=== PATIENT | male | born 1975 | race Two or more races ===

== ENCOUNTER → 2016-12-13 | Outpatient (REF) | payer OTHER ==
[2016-12-13 12:09] LABS: ALBUMIN 3.9 GM/DL (3.2-5.2); ALBUMIN/GLOBULIN RATIO 1.18 (1.00-1.93); ALKALINE PHOSPHATASE 75 U/L (45-117); ALT/SGPT 28 U/L (12-78); ANION GAP 9 MEQ/L (8-16); AST/SGOT 16 U/L (15-37); BILIRUBIN,TOTAL 0.3 MG/DL (0.2-1.0); BLOOD UREA NITROGEN 8 MG/DL (7-18); CALCIUM LEVEL 9.4 MG/DL (8.5-10.1); CARBON DIOXIDE LEVEL 30 MEQ/L (21-32); CHLORIDE LEVEL 104 MEQ/L (98-107); CHOLESTEROL LEVEL 242 MG/DL (<200); CREATININE FOR GFR 0.87 MG/DL (0.70-1.30); GLOMERULAR FILTRATION RATE > 60.0 (>60); GLUCOSE, FASTING 95 MG/DL (70-105); POTASSIUM SERUM 4.1 MEQ/L (3.5-5.1); SODIUM LEVEL 143 MEQ/L (136-145); TOTAL PROTEIN 7.2 GM/DL (6.4-8.2); TRIGLYCERIDES LEVEL 109 MG/DL (<150)
== END ==
LOC: M SFHCCLAY 09:20
PROVIDERS: ATTEND Family Medicine
DX: Z13.220 Encounter for screening for lipoid disorders (principal)

== ENCOUNTER → 2016-12-13 | Outpatient (CLI) | payer OTHER ==
--- NOTE | 2016-12-13 10:16 | REP ---
RIGHT KNEE, FIVE VIEWS: HISTORY: Pain. There is no acute fracture or dislocation. The joint spaces are normal in appearance. IMPRESSION: There is no acute fracture or dislocation.
== END ==
LOC: M CLY 09:31
PROVIDERS: ATTEND Family Medicine
DX: M25.561 Pain in right knee (principal)

== ENCOUNTER → 2017-11-06 | Outpatient (CLI) | payer OTHER | LOC: M RAD 15:04 | DX: M48.061 Spinal stenosis, lumbar region without neurogenic claudication (principal); M51.26 Other intervertebral disc displacement, lumbar region | CPT/HCPCS: 72148 ==

== ENCOUNTER → 2018-12-04 | Outpatient (REF) | payer OTHER ==
[2018-12-04 12:10] LABS: ALBUMIN 3.6 GM/DL (3.2-5.2); ALT/SGPT 19 U/L (12-78); BILIRUBIN,TOTAL 0.3 MG/DL (0.2-1.0); BLOOD UREA NITROGEN 8 MG/DL (7-18); CALCIUM LEVEL 8.7 MG/DL (8.5-10.1); CARBON DIOXIDE LEVEL 28 MEQ/L (21-32); CHLORIDE LEVEL 105 MEQ/L (98-107); CHOLESTEROL LEVEL 194 MG/DL (<200); CHOLESTEROL RISK RATIO 3.344 (<5); CREATININE FOR GFR 0.84 MG/DL (0.70-1.30); GLOMERULAR FILTRATION RATE > 60.0 (>60); GLUCOSE, FASTING 98 MG/DL (70-100); HDL CHOLESTEROL 58 MG/DL (>40); LDL CHOLESTEROL 126 MG/DL (<100); NON-HDL-C 136 MG/DL; POTASSIUM SERUM 4.6 MEQ/L (3.5-5.1); SODIUM LEVEL 142 MEQ/L (136-145); TOTAL PROTEIN 6.6 GM/DL (6.4-8.2); TRIGLYCERIDES LEVEL 52 MG/DL (<150)
== END ==
LOC: M SFHCCLAY 07:26
PROVIDERS: ATTEND Family Medicine
DX: E78.2 Mixed hyperlipidemia (principal)

== ENCOUNTER → 2019-06-04 | Outpatient (CLI) | payer OTHER ==
--- NOTE | 2019-06-04 12:07 | REP ---
MRI of the lumbar spine without contrast: Indication: Lumbar stenosis. Comparison: MRI lumbar spine of 11/06/2017. Technique: MRI lumbar spine was performed without contrast utilizing sagittal T1, T2 and STIR and axial T2 and T1-weighted images. FINDINGS: Bone marrow is diffusely T1 hypointense in signal but unchanged from prior studies. There is normal alignment of the lumbar spine. Vertebral body heights are maintained. There is loss of disc height at L1-L2. There is disc desiccation and L1-L2 and L4-L5. There is endplate irregularity with edematous and fatty marrow changes at L1-L2. There is edematous marrow changes at L2-L3. The visualized spinal cord is unremarkable. The conus medullaris terminates at L1-L2. The paraspinal soft tissues are within normal limits. Level specific observations: T11-T12 (sagittal images only): There is diffuse disc bulge. T12-L1: No significant spinal canal stenosis or neural foraminal narrowing. L1-L2: Diffuse disc bulge with superimposed central disc protrusion, similar to prior. There is effacement of the ventral thecal sac. Mild narrowing of the left neural foramen. L2- L3: No significant spinal canal stenosis or neural foraminal narrowing. L3-L4: No significant spinal canal stenosis or neural foraminal narrowing. L4-L5: Central disc protrusion, similar to prior. Annular fissure. L5-S1: No significant spinal canal stenosis or neural foraminal narrowing. IMPRESSION: 1. When compared to the 11/06/2017 MRI examination, there is new annular fissure at L4-L5. 2. Disc protrusion at L1-L2 and L4-L5 is not significantly changed. 3. Mild narrowing of the left L1-L2 neural foramen. 4. Similar appearance of decreased T1 signal intensity throughout the marrow which is nonspecific. However, correlation can be made for history of anemia or chronic marrow process. Electronically Signed by Guille Perez MD 06/04/2019 01:25 P
== END ==
LOC: M PLARAD 09:01
PROVIDERS: ATTEND Family Medicine
DX: M48.061 Spinal stenosis, lumbar region without neurogenic claudication (principal)

== ENCOUNTER → 2019-07-01 | Outpatient (CLI) | payer OTHER ==
--- NOTE | 2019-07-02 14:59 | REP ---
CHEST X-RAY: Three views. HISTORY: Pneumonia. Comparison films have been retrieved from an outside facility dated June 13, 2019. FINDINGS: There are air bronchograms in a pleural-based rounded 5 cm opacity in the right lower lateral lung field. This is superimposed on the heart on the lateral radiograph. There is improvement since the June 13, 2019 study in the frontal view. There is tenting of the right lateral hemidiaphragm. The more lateral portion of the diaphragm is more visible now. The overall opacity is a little smaller. There is still considerable consolidation. No new infiltrate is seen. IMPRESSION: Findings most likely represent gradually improving pneumonia. The residual opacity however is rounded and pleural-based and I recommend followup x-ray in 3 weeks to document clearing. If this lesion fails to clear. CT scanning should be considered. Electronically Signed by Jon Burden MD 07/02/2019 03:02 P
== END ==
LOC: M CLY 11:39
PROVIDERS: ATTEND Family Medicine
DX: J18.9 Pneumonia, unspecified organism (principal)

== ENCOUNTER → 2019-07-22 | Outpatient (CLI) | payer OTHER ==
--- NOTE | 2019-07-22 14:45 | REP ---
REASON: Followup pneumonia. COMPARISON: 07/01/2019. The patchy opacities seen previously in the right middle lobe lateral segment is smaller and less dense, however, a significant residual persists. There are no new abnormal opacities. The heart is not enlarged. The osseous structures are stable and intact. IMPRESSION: Persistent lung opacity as described above. Contrast enhanced CT examination of the chest is recommended. Electronically Signed by Skip Castro DO 07/22/2019 04:43 P
== END ==
LOC: M CLY 14:02
PROVIDERS: ATTEND Family Medicine
DX: J18.1 Lobar pneumonia, unspecified organism (principal)

== ENCOUNTER → 2019-07-29 | Outpatient (CLI) | payer OTHER ==
[~2019-07-29] MED LIST: ISOVUE-370 76% 100ML VIAL (Q9967) As Ordered ONE
--- NOTE | 2019-07-29 17:07 | REP ---
CT chest with IV contrast: History: Abnormal chest x-ray. Pneumonia. Comparison chest x-ray July 22, 2019 and July 01, 2019. There is a comparison chest x-ray also reviewed from June 13, 2019. CT contrast dose: 75 ml of intravenous Isovue [address] findings: There is segmental atelectasis and consolidation in the lateral segment right middle lobe. There are is some bronchiectasis associated with this. There is a granulomatous calcification in the aerated medial segment of the right middle lobe. No mass lesion or other pulmonary nodule is appreciated. There is no evidence of hilar or mediastinal lymphadenopathy. No pleural or pericardial effusion is appreciated. No other pulmonary parenchymal infiltrate is seen. There is no evidence of endobronchial disease. No adrenal lesion is observed. Visualized upper abdominal structures are unremarkable. No bony destructive lesion is seen. Impression: There is consolidation and atelectasis in the lateral segment right middle lobe with associated postinflammatory bronchiectasis. Findings most consistent with post inflammatory changes. There is a calcified granuloma also noted in the right middle lobe. Otherwise no acute disease. Repeat chest x-ray and 4 to 6 months suggested. Electronically Signed by Jon Burden MD 07/30/2019 08:34 A
== END ==
LOC: M RAD 15:21
PROVIDERS: ATTEND Family Medicine
DX: R93.89 Abnormal findings on diagnostic imaging of other specified body structures (principal); J98.11 Atelectasis; J47.9 Bronchiectasis, uncomplicated; J84.10 Pulmonary fibrosis, unspecified
CPT/HCPCS: 71260; Q9967

== ENCOUNTER → 2019-09-02 | Outpatient (CLI) | payer OTHER ==
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
== END ==
LOC: M PAIN 15:00
PROVIDERS: ATTEND Anesthesiology
DX: M79.18 Myalgia, other site (principal); M54.42 Lumbago with sciatica, left side; M54.41 Lumbago with sciatica, right side; G89.29 Other chronic pain; M47.816 Spondylosis without myelopathy or radiculopathy, lumbar region

== ENCOUNTER → 2019-10-26 | Outpatient (CLI) | payer OTHER ==
[~2019-10-26] MED LIST changes: +BUPIVACAINE HCL 0.25% 10 ML VIAL As Ordered ONE; +BUPIVACAINE HCL 0.25% 30 ML VIAL As Ordered ONE; -ISOVUE-370 76% 100ML VIAL (Q9967) As Ordered ONE; +TRIAMCINOLONE ACETONIDE SUSP 40 MG/ML VIAL (J3301) As Ordered ONE
--- NOTE | 2019-11-03 04:12 | ECWPNPC ---
PATIENT NAME: NICOLÁS MCRAE : 1975 GENDER: MALE VISIT DATE: 10/26/2019 DISCHARGE DATE: 10/26/19 1544 VISIT LOCKED DATE TIME: PHYSICIAN: EUFEMIA HERNANDEZ MD RESOURCE: EUFEMIA HERNANDEZ MD REASON FOR APPOINTMENT 1. TPI JASON LOW BACK HISTORY OF PRESENT ILLNESS HISTORY OF PRESENT ILLNESS: PAIN THE PATIENT DESCRIBES THE PAIN... FALL RISK SCREENING: SCREENING :NO FALLS REPORTED IN THE LAST YEAR CURRENT MEDICATIONS TAKING CHANTIX 1 MG TABLET 1 TABLET ORALLY TWICE A DAY, NOTES: 10/26/19 0800 TAKING OXYCODONE HCL 5 MG TABLET 2 TABLET NEEDED ORALLY EVERY 6 HOURS MDD#8, NOTES: 10/26/19 1230 NOT-TAKING MULTIVITAMIN ADULTS - TABLET 1 TAB ORALLY DAILY MEDICATION LIST REVIEWED AND RECONCILED WITH THE PATIENT PAST MEDICAL HISTORY LOW BACK PAIN-LUMBAR DEGENERATIVE DISC DISEASE PNEUMONIA ONCE MIXED HYPERLIPIDEMIA SPINAL STENOSIS - LUMBAR ALLERGIES N.K.D.A. SURGICAL HISTORY DENIES PAST SURGICAL HISTORY FAMILY HISTORY FATHER: 73 YRS, CHF, DIAGNOSED WITH DIABETES, HYPERTENSION, UNSPECIFIED HEART DISEASE IN 2 MOTHER: 66 YRS, LUNG CANCER SIBLINGS: ALIVE SON(S): ALIVE DAUGHTER(S): ALIVE 2 BROTHER(S) , 2 SISTER(S) . 2 SON(S) , 2 DAUGHTER(S) - HEALTHY. 1 SISTER-THYROID ISSUES1 BROTHER-HTN. SOCIAL HISTORY GENERAL: TOBACCO USE ARE YOU A:FORMER SMOKER HOW LONG HAS IT BEEN SINCE YOU LAST SMOKED?3-6 MONTHS HIV / HEP-C SCREENING HIV TEST OFFERED TO PATIENT:YES DATE OFFERED:12/04/2018 TEST ACCEPTED:NO HEP-C TEST OFFERED TO PATIENT:NO REASON:PATIENT DECLINED BROCHURE PROVIDED TO PATIENTNO OTHERS AT HOME: SPOUSE, CHILDREN. HOUSING: RENTS HOUSE. EDUCATION LEVEL OF EDUCATION: GED DIET: REGULAR. LANGUAGE LANGUAGES SPOKEN:ZAMBIAN DOMESTIC VIOLENCE DO YOU FEEL SAFE IN YOUR ENVIRONMENT?YES RECREATIONAL DRUG USE DRUG USE?NO EXERCISE: ACTIVE. LEARNING BARRIERS / SPECIAL NEEDS CHANGE FROM LAST VISIT?NO BARRIERS TO LEARNING?NO HEARING IMPAIRED?NO VISION IMPAIRED?NO COGNITIVELY IMPAIRED?NO READINESS TO LEARN?YES LEARNING PREFERENCES?NO LEARNING CAPABILITIES PRESENT?YES EMOTIONAL BARRIERS?NO SPECIAL DEVICES?NO TALENT ENGINEER NEEDED?NO PAIN CLINIC PFS, CLERGY, PUBLIC HEALTH REFERRALS HAS THE PATIENT BEEN EDUCATED REGARDING HIS/HER PLAN OF CARE?YES HAS THE PATIENT BEEN EDUCATED REGARDING PAIN, THE RISK FOR PAIN, THE IMPORTANCE OF EFFECTIVE PAIN MANAGEMENT, AND THE PAIN ASSESSMENT PROCESS?YES LATEX QUESTIONNAIRE LATEX ALLERGY : HAVE YOU EVER DEVELOPED ANY TYPE OF REACTION AFTER HANDLING LATEX PRODUCTS SUCH RUBBER GLOVES, CONDOMS, DIAPHRAGMS, BALLOONS, SOCKS, OR UNDERWEAR?NO LATEX ALLERGY : HAVE YOU EVER DEVELOPED ANY TYPE OF REACTION DURING OR AFTER DENTAL APPOINTMENT, VAGINAL/RECTAL EXAMINATION, SURGICAL PROCEDURE, OR ANY OTHER EXPOSURE?NO LATEX RISK : HAVE YOU EVER HAD ANY DIFFICULTY BREATHING OR HIVES AFTER EATING OR HANDLING ANY FRUITS, OR VEGETABLES; SUCH KIWI, BANANAS, STONE FRUITS, OR CHESTNUTSNO LATEX RISK : DO YOU HAVE A PREVIOUS PERSONAL HISTORY OF MORE THAN NINE SURGERIES, SPINA BIFIDA, OR REPEATED CATHERIZATIONS? NO LATEX RISK : ARE YOU FREQUENTLY EXPOSED TO LATEX PRODUCTS IN YOUR OCCUPATION?NO DATE ASKED : 09/02/2019 CAFFEINE CAFFEINE USE?YES HOW OFTEN AND HOW MUCH? 2 SODAS DAILY ADVANCE DIRECTIVE ADVANCE DIRECTIVE DISCUSSED WITH PATIENT:YES 10/21/2019 PT DOES NOT HAVE ANY ADVANCED DIRECTIVES AND HE DECLINES INFORMATION ON HCP AT THIS TIME. [facility] [id number] NONE MARITAL STATUS: . ALCOHOL SCREENING DID YOU HAVE A DRINK CONTAINING ALCOHOL IN THE PAST YEAR?NO POINTS0 INTERPRETATIONNEGATIVE OCCUPATION: CONSTRUCTION. SEXUAL HX HAD SEX IN THE LAST 12 MONTHS (VAGINAL, ORAL, OR ANAL)?YES WITHWOMEN ONLY PREVENTION STRATEGIES DISCUSSED:OTHER USE PROTECTION?NO HAVE YOU EVER HAD AN STD?NO PRE-SCREENING COMPLETED 10/21/2019 1518 JS. HOSPITALIZATION/MAJOR DIAGNOSTIC PROCEDURE HEAT STROKE 2002 REVIEW OF SYSTEMS REVIEWED BY: PROVIDER: . CONSTITUTIONAL: ANY CHANGE IN YOUR MEDICAL CONDITION? NO . CHILLS NO . FEVER NO . INFECTION: DO YOU HAVE NEW INFECTIONS? NO . DO YOU HAVE HISTORY OF MRSA? NO . MUSCULOSKELETAL: ANY NEW PATTERNS OF PAIN OR NUMBNESS? NO . GASTROENTEROLOGY: ANY NEW CHANGE IN BOWEL CONTROL? NO . GENITOURINARY: ANY NEW CHANGE IN BLADDER CONTROL? NO . IS THERE A CHANCE YOU COULD BE ? NO . HEMATOLOGY/LYMPH: DO YOU TAKE ANY BLOOD THINNERS? (FOR EXAMPLE- COUMADIN, PLAVIX, AGGRENOX, PLATEL, PRADAXA, OR XARELTO) NO . WHEN WAS YOUR LAST DOSE? DATE: TIME: . NEUROLOGY: HAVE YOU FALLEN IN THE PAST 12 MONTHS? NO . ANY NEW EXTREMITY NUMBNESS OR WEAKNESS? NO . CARDIOLOGY: DO YOU HAVE A PACEMAKER OR DEFIBRILLATOR? NO . RESPIRATORY: HAVE YOU BEEN SICK IN THE PAST WEEK? NO . FEVER NO . FLU LIKE SYMPTOMS? NO . COUGH NO . INTEGUMENTARY: DO YOU HAVE ANY RASHES OR OPEN SORES? NO . ALLERGIC/IMMUNO: ARE YOU ALLERGIC TO IV DYE? NO . ANY NEW ALLERGIES? NO . PSYCHIATRIC: DO YOU HAVE THOUGHTS OF HURTING YOURSELF OR SOMEONE ELSE? NO . ARE YOU ABUSED, NEGLECTED, OR IN AN UNSAFE ENVIRONMENT? NO . ENDOCRINOLOGY: ARE YOU DIABETIC? NO . OTHER: DO YOU NEED ANY PRESCRIPTIONS? NO . IF YES, PLEASE LIST: ____ . ANY NEW PROBLEMS WITH YOUR MEDICATIONS? NO . WHEN DID YOU LAST EAT? 10/25/19 2130 . WHEN DID YOU LAST DRINK? 04/25/20 1230 . WHAT DID YOU LAST DRINK? WATER . NAME OF PERSON DRIVING YOU HOME? - JANUARY CLEMENTINA . DO YOU HAVE ANY OTHER QUESTIONS OR CONCERNS NO . VITAL SIGNS WT 164.4 LBS, HT 6', BMI 22.29 INDEX, BP 125/85 MM HG, HR 60 /MIN, RR 18 /MIN, TEMP 97.9 F, OXYGEN SAT % 99%, SAFE IN ENV? (Y/N) YES, NA INITIALS SC 14:01, REVIEWED BY: TY. ASSESSMENTS MYALGIA, OTHER SITE - M79.18 (PRIMARY) PROCEDURES PN TRIGGER POINT INJECTION WITH STEROIDS PRE PROCEDURE DIAGNOSIS 1. MYALGIA 2. PAIN AT RIGHT LOW BACK AREA AND LEFT LOW BACK AREA POST PROCEDURE DIAGNOSIS 1. MYALGIA 2. PAIN AT RIGHT LOW BACK AREA AND LEFT LOW BACK AREA PROCEDURE TRIGGER POINT INJECTION AT RIGHT LOW BACK AREA AND LEFT LOW BACK AREA SURGEON DR. EUFEMIA HERNANDEZ INSTRUCTOR DANCING NONE ANESTHESIA LOCAL PRE PROCEDURE NOTE THE PATIENT HAS A HISTORY OF CHRONIC PAIN AT THE RIGHT LOW BACK AREA AND LEFT LOW BACK AREA. I EVALUATED THE PATIENT AND REVIEWED THE CHART. THERE IS EVIDENCE OF BANDS OF TISSUE WITH RESTRICTION OF MOVEMENT AND PRESENCE OF TRIGGER POINT AT THE AFFECTED AREAS. I WENT OVER THE RISKS, ALTERNATIVES, AND BENEFITS ASSOCIATED WITH THIS PROCEDURE. THE PATIENT WOULD LIKE TO PROCEED AND GIVES CONSENT TO PERFORMED THE PROCEDURE. THE PATIENT DENIES UNEXPLAINABLE WEIGHT LOSS, FEVER, CHILLS, OR NEW CHANGES IN URINARY OR BOWEL CONTROL DESCRIPTION OF PROCEDURE THE PATIENT WAS BROUGHT TO THE PROCEDURE ROOM AND PLACED IN THE SITTING POSITION. THE AREA WAS CLEANED WITH ALCOHOL. THE PROCEDURE WAS DONE USING ASEPTIC STERILE TECHNIQUE. I CHECKED LATERALITY AND THE LEVEL WHERE THE PROCEDURE WAS GOING TO BE PERFORMED WITH THE PATIENT AND THE SUPPORTING STAFF AT THE MOMENT OF THE TIME OUT IN THE PROCEDURE ROOM. USING A 25-GAUGE NEEDLE, TRIGGER POINTS WERE INJECTED AT THE RIGHT LOW BACK AREA AND LEFT LOW BACK AREA WITH A TOTAL OF 40 ML OF BUPIVACAINE 0.25% AND KENALOG 40 MG. THERE WAS NO EVIDENCE OF BLOOD, PARESTHESIA OR CEREBROSPINAL FLUID DURING THE PROCEDURE. THE PATIENT WAS SENT TO THE RECOVERY ROOM. THE PATIENT WAS MOVING THE EXTREMITIES AND DOING WELL. THERE WAS NO COMPLICATION DURING THE PROCEDURE POST PROCEDURE NOTE THE PATIENT WILL BE SEEN IN A FOLLOW UP IN THE NEXT FEW WEEKS. I AM LOOKING FOR LONG-LASTING PAIN RELIEF WITH THIS INTERVENTION. INSTRUCTIONS WERE GIVEN, QUESTIONS WERE ANSWERED, AND THE PATIENT EXPRESSED UNDERSTANDING AND AGREES WITH THE PLAN. I, TANVIR BROOKS, DOCUMENTED THE ABOVE INFORMATION ACTING A SCRIBE FOR DR. HERNANDEZ. I HAVE REVIEWED THE ABOVE DOCUMENT, WRITTEN BY TANVIR BARRAZA, AND I VERIFY THAT IT IS ACCURATE PROCEDURE CODES 20228 INJECT TRIGGER POINT, 1 OR 2 DISPOSITION & COMMUNICATION FOLLOW UP 3 WEEKS ELECTRONICALLY SIGNED BY EUFEMIA HERNANDEZ MD, MD ON 11/02/2019 AT 10:21 AM EST DISCLAIMER : THIS IS A VISIT SUMMARY EXTRACTED FROM THE [employer] CHART. IT IS NOT A COPY OF THE [employer] PROGRESS NOTE. MATT
== END ==
LOC: M PAIN 14:00
PROVIDERS: ATTEND Anesthesiology
DX: M79.18 Myalgia, other site (principal); E78.2 Mixed hyperlipidemia; Z87.891 Personal history of nicotine dependence; Z79.899 Other long term (current) drug therapy
CPT/HCPCS: 20552; J3301

== ENCOUNTER → 2020-08-16 | Outpatient (CLI) | payer OTHER ==
--- NOTE | 2020-08-16 15:07 | REP ---
INDICATION: R93.89, ABNORMAL CHEST XRAY. COMPARISON: Comparison chest x-ray July 22, 2019. comparison chest CT study July 29, 2019. TECHNIQUE: Three views.. FINDINGS: The lungs are hyperinflated. There is some linear markings in the right base just behind the heart on the lateral film. The right middle lobe infiltrate seen on July 22, 2019 is improved and some linear fibrosis is seen in its wake. No new infiltrate is seen. Pleural angles are sharp. Heart is not enlarged. No significant bony abnormality. IMPRESSION: Right middle lobe linear fibrosis where prior study showed infiltrate. Hyperinflation. Otherwise, no acute disease.. <Electronically signed by Govind Burden > 08/16/20 1546
== END | disposition home or self-care (01) ==
LOC: M CLY 09:14
PROVIDERS: ATTEND Family Medicine
DX: R93.89 Abnormal findings on diagnostic imaging of other specified body structures (principal)

== ENCOUNTER → 2021-07-27 | Outpatient (REF) | payer OTHER ==
[2021-07-27 17:14] LABS: ALBUMIN 3.4 GM/DL (3.2-5.2); ALT/SGPT 14 U/L (12-78); BILIRUBIN,TOTAL 0.4 MG/DL (0.2-1.0); BLOOD UREA NITROGEN 20 MG/DL (7-18); CALCIUM LEVEL 9.1 MG/DL (8.5-10.1); CARBON DIOXIDE LEVEL 35 MEQ/L (21-32); CHLORIDE LEVEL 98 MEQ/L (98-107); CHOLESTEROL LEVEL 153 MG/DL (<200); CHOLESTEROL RISK RATIO 2.428 (<5); CREATININE FOR GFR 0.96 MG/DL (0.70-1.30); GLOMERULAR FILTRATION RATE > 60.0 (>60); GLUCOSE, FASTING 111 MG/DL (70-100); HDL CHOLESTEROL 63 MG/DL (>40); LDL CHOLESTEROL 77 MG/DL (<100); NON-HDL-C 90 MG/DL; POTASSIUM SERUM 3.8 MEQ/L (3.5-5.1); SODIUM LEVEL 137 MEQ/L (136-145); TOTAL PROTEIN 6.4 GM/DL (6.4-8.2); TRIGLYCERIDES LEVEL 66 MG/DL (<150)
== END ==
LOC: M SFHCCLAY 11:13
PROVIDERS: ATTEND Family Medicine
DX: E78.2 Mixed hyperlipidemia (principal)

== ENCOUNTER 2021-08-14 21:12 | Emergency (ER) | payer OTHER ==
[~2021-08-14] VITALS: Ht 182.9 cm; Wt 68.2 kg
--- OUTSIDE RECORDS SUMMARY | 2021-08-14 21:18 | CCD ---
Author Author [facility] Organization [facility] Address Unknown Phone Unavailable Care Team Providers Care Carpet Sewer Name Role Phone Jasson Busby Unavailable PROBLEMS Type Condition ICD9-CM Code [id number] Code Onset Dates Condition S tatus W/U Status Risk SNOMED Code Notes Problem Lumbar stenosis without neurogenic claudication M4 8.061 Active confirmed 74386987 Problem Lumbar degenerative disc disease M51.36 Active conf irmed 09892879 Problem Lumbago with sciatica, left side M54.42 Active confirmed 324566633 Problem Abnormal chest x-ray R93.89 Active confirmed 517801068 Problem Mixed hyperlipidemia E78.2 Active confirmed 095432462 Problem Primary insomnia F51.01 Active confirmed 397 2004 Problem Tobacco use disorder F17.200 Active confirmed 689144509 Problem Lumbago with sciatica, right side M54.41 Active confirmed 879950262529998 Problem Spondylosis without myelopathy or radiculopathy, lumbar region M47.816 Active confirmed 838422817 Problem Other chronic pain G89.29 Active confirmed 8 3818665 Problem Myalgia, other site M79.18 Active confirmed 78619109 ALLERGIES Allergen (clinical drug ingredient) Drug/Non Drug Allergy do cumented on EMR Reaction Allergy Type Onset Date Status amitriptyline Amitriptyline HCl([facility] Code:[address]-77) altere d sensations Drug Allergy Active ENCOUNTERS from 1973 to 2021-08-07 Encounter Location Date Provider Diagnosis [address] [phone] [place] [address] Jul, Jasson Busby IMMUNIZATIONS Vaccine Route Administration Date Status Influenza 18 yrs & older Flublok IM Intramuscular Sep 08, 2020 Administered TDAP VFC 0.5mL Boostrix IM Intramuscular Jun 27, 2017 Adminis tered Influenza 6mo & up Fluzone IM Intramuscular Sep 09, 2017 Admi nistered SOCIAL HISTORY Tobacco Use: Social History Observation Description Date Details (start date - stop date) Current Smoker Sex Assigned At : Social History Observation Description Sex Assigned At Unknown Education: Question Answer Notes Level of Education: GED Audit Question Answer Notes Total Score: 0 Interpretation: Alcohol Education Language: Question Answer Notes Languages spoken: Cymro Restoration: Question Answer Notes Restoration 33 None Sexual Hx: Question Answer Notes Had sex in the last 12 months (vaginal, oral, or anal)? Yes Have you ever had an STD? No Prevention Strategies discussed: Other with Women only Use protection? No Alcohol Screening: Question Answer Notes Did you have a drink containing alcohol in the past year? No Points 0 Interpretation Negative Tobacco Use: Question Answer Notes Are you a: current smoker Additional Findings: Tobacco User Moderate cigarette smoker (10-19 cigs/day) Smoking Cessation Information Given 07/27/2021 Additional Findings: Tobacco Non-User Ex-heavy cigarette smo ker (20-30/day) Are you interested in quitting? Not ready to quit Counseled the patient on smoking effects, education provided 07/27/2021 REASON FOR REFERRAL No Information VITAL SIGNS No information MEDICATIONS Medication SIG (Take, Route, Frequency, Duration) Notes Start Da te End Date Status Lunesta 3 MG 1 tablet immediately before bedtime Oral ly Once a day for 30 Days Jul, Active Zaleplon 10 MG 1 capsule at bedtime as needed Orally Once a day for 30 Days Jul, Active Gabapentin 100 MG 1 capsule Orally three times daily for 14 day( s) Jul, Active traZODone HCl 50 MG 1 tablet at bedtime as neede d Orally Once a day for 30 day(s) Jul, Active Naproxen 500 MG 1 tablet with food or milk as needed Orally every 12 hrs Active PROCEDURES No Information RESULTS No Results REASON FOR VISIT PA Lunesta 3mg tablets MEDICAL (GENERAL) HISTORY Type Description Date Medical History Low back pain-Lumbar Degenerative Disc D isease Medical History Mixed Hyperlipidemia Medical History Spinal Stenosis - Lumbar Surgical History No Surgical history information Hospitalization History Heat Stroke 2003 Goals Section No Information Health Concerns No Information MEDICAL EQUIPMENT No Information MENTAL STATUS No Information FUNCTIONAL STATUS No Information ASSESSMENTS No Information PLAN OF TREATMENT Medication Medication Name Sig Start Date Stop Date Lunesta 3 MG 1 tablet immediately before bedtime Oral ly Once a day for 30 Days Jul, traZODone HCl 50 MG 1 tablet at bedtime as neede d Orally Once a day for 30 day(s) Jul, Zaleplon 10 MG 1 capsule at bedtime as needed Orally On ce a day for 30 Days Jul, Gabapentin 100 MG 1 capsule Orally three times daily for 14 day( s) Jul, Insurance Providers Payer Name Payer Address Payer Phone Insured Name Patient Relati onship to Insured Coverage Start Date Coverage End Date [facility] COMM[facility]AN [facility] [address] [facility] [phone] JASSON MCRAE self
--- OUTSIDE RECORDS SUMMARY | 2021-08-14 21:18 | CCD ---
Author Author [facility] Organization [facility] Address Unknown Phone Unavailable Care Team Providers Care Head Pumper Name Role Phone Jasson Busby Unavailable PROBLEMS Type Condition ICD9-CM Code [id number] Code Onset Dates Condition S tatus W/U Status Risk SNOMED Code Notes Problem Lumbar stenosis without neurogenic claudication M4 8.061 Active confirmed 28045083 Problem Lumbar degenerative disc disease M51.36 Active conf irmed 85074786 Problem Lumbago with sciatica, left side M54.42 Active confirmed 815622810 Problem Abnormal chest x-ray R93.89 Active confirmed 361208835 Problem Mixed hyperlipidemia E78.2 Active confirmed 375131719 Problem Primary insomnia F51.01 Active confirmed 397 2004 Problem Tobacco use disorder F17.200 Active confirmed 155978027 Problem Lumbago with sciatica, right side M54.41 Active confirmed 198444537690064 Problem Spondylosis without myelopathy or radiculopathy, lumbar region M47.816 Active confirmed 023122077 Problem Other chronic pain G89.29 Active confirmed 8 4873970 Problem Myalgia, other site M79.18 Active confirmed 23575614 ALLERGIES Allergen (clinical drug ingredient) Drug/Non Drug Allergy do cumented on EMR Reaction Allergy Type Onset Date Status amitriptyline Amitriptyline HCl([facility] Code:[address]-15) altere d sensations Drug Allergy Active ENCOUNTERS from 1975 to 2021-08-07 Encounter Location Date Provider Diagnosis [facility] [phone] [place] [address] Jul, Jasson Busby IMMUNIZATIONS Vaccine Route Administration [...] Education Language: Question Answer Notes Languages spoken: Russian Judaism: Question Answer Notes Judaism 33 None Sexual Hx: Question Answer Notes [...] Information RESULTS No Results REASON FOR VISIT unable to sleep MEDICAL (GENERAL) HISTORY Type Description Date Medical [...] Once a day for 30 day(s) Jul, Gabapentin 100 MG 1 capsule Orally three times daily for 14 day( s) Jul, Insurance Providers Payer Name Payer Address Payer Phone Insured Name Patient Relati onship to Insured Coverage Start Date Coverage End Date [facility] [address] [facility] [phone] JASSON MCRAE self
--- OUTSIDE RECORDS SUMMARY | 2021-08-14 21:18 | CCD ---
Author Author [facility] Organization [facility] Address Unknown Phone Unavailable Care Team Providers Care Vacuum Worker Name Role Phone Jasson Busby Unavailable PROBLEMS Type Condition ICD9-CM Code [id number] Code Onset Dates Condition S tatus W/U Status Risk SNOMED Code Notes Problem Lumbar stenosis without neurogenic claudication M4 8.061 Active confirmed 04697231 Problem Lumbar degenerative disc disease M51.36 Active conf irmed 09673960 Problem Lumbago with sciatica, left side M54.42 Active confirmed 612006036 Problem Abnormal chest x-ray R93.89 Active confirmed 882014644 Problem Mixed hyperlipidemia E78.2 Active confirmed 285458613 Problem Primary insomnia F51.01 Active confirmed 397 2004 Problem Tobacco use disorder F17.200 Active confirmed 086991592 Problem Lumbago with sciatica, right side M54.41 Active confirmed 892305997321866 Problem Spondylosis without myelopathy or radiculopathy, lumbar region M47.816 Active confirmed 886699713 Problem Other chronic pain G89.29 Active confirmed 8 9680814 Problem Myalgia, other site M79.18 Active confirmed 83787727 ALLERGIES Allergen (clinical drug ingredient) Drug/Non Drug Allergy do cumented on EMR Reaction Allergy Type Onset Date Status amitriptyline Amitriptyline HCl([facility] Code:[address]-90) altere d sensations Drug Allergy Active ENCOUNTERS from 1973 to 2021-08-02 Encounter Location Date Provider Diagnosis [facility] Ari STRAWBERRY [phone] [place] [address] Jul, Jasson Busby Primary insomnia F51.01 IMMUNIZATIONS Vaccine Route Administration Date Status Influenza [...] Education Language: Question Answer Notes Languages spoken: Israeli Confucianism: Question Answer Notes Confucianism 33 None Sexual Hx: Question Answer Notes [...] Notes Start Da te End Date Status Gabapentin 100 MG 1 capsule Orally three times daily for 14 day( s) Jul, Active Naproxen 500 MG 1 tablet with food or milk as needed Orally every 12 hrs Active traZODone HCl 50 MG 1 tablet at bedtime as neede d Orally Once a day for 30 day(s) Jul, Active PROCEDURES No Information RESULTS No Results REASON FOR VISIT med issue MEDICAL (GENERAL) HISTORY Type Description Date Medical History Low back pain-Lumbar Degenerative Disc D isease Medical History Mixed Hyperlipidemia Medical History Spinal Stenosis - Lumbar Surgical History No Surgical history information Hospitalization History Heat Stroke 2003 Goals Section No Information Health Concerns No Information MEDICAL EQUIPMENT No Information MENTAL STATUS No Information FUNCTIONAL STATUS No Information ASSESSMENTS Encounter Date Diagnosis Assessment Notes Treatment Notes Treatm ent Clinical Notes Jul, Primary insomnia (ICD-10 - F51.01) PLAN OF TREATMENT Medication Medication Name Sig Start Date Stop Date Gabapentin 100 MG 1 capsule Orally three times daily for 14 day( s) Jul, traZODone HCl 50 MG 1 tablet at bedtime as neede d Orally Once a day for 30 day(s) Jul, Insurance Providers Payer Name Payer Address Payer Phone Insured Name Patient Relati onship to Insured Coverage Start Date Coverage End Date [facility] COMMUNITY PLAN [facility] [address] [facility] [phone] JASSON MCRAE self
--- OUTSIDE RECORDS SUMMARY | 2021-08-14 21:18 | CCD ---
Author Author [facility] Organization [facility] Address Unknown Phone Unavailable Care Team Providers Care Adoption Coordinator Name Role Phone Jasson Busby Unavailable PROBLEMS Type Condition ICD9-CM Code [id number] Code Onset Dates Condition S tatus W/U Status Risk SNOMED Code Notes Problem Lumbar stenosis without neurogenic claudication M4 8.061 Active confirmed 07180648 Problem Lumbar degenerative disc disease M51.36 Active conf irmed 95292723 Problem Lumbago with sciatica, left side M54.42 Active confirmed 551422836 Problem Abnormal chest x-ray R93.89 Active confirmed 722847549 Problem Mixed hyperlipidemia E78.2 Active confirmed 490037331 Problem Primary insomnia F51.01 Active confirmed 397 2004 Problem Tobacco use disorder F17.200 Active confirmed 194679914 Problem Lumbago with sciatica, right side M54.41 Active confirmed 661319202674834 Problem Spondylosis without myelopathy or radiculopathy, lumbar region M47.816 Active confirmed 681001215 Problem Other chronic pain G89.29 Active confirmed 8 5533210 Problem Myalgia, other site M79.18 Active confirmed 61537354 ALLERGIES Allergen (clinical drug ingredient) Drug/Non Drug Allergy do cumented on EMR Reaction Allergy Type Onset Date Status amitriptyline Amitriptyline HCl([facility] Code:[address]-13) altere d sensations Drug Allergy Active ENCOUNTERS from 1973 to 2021-08-06 Encounter Location Date Provider Diagnosis [facility] Ari GRETEL [phone] [place] [address] Jul, Jasson Busby IMMUNIZATIONS Vaccine Route Administration [...] Education Language: Question Answer Notes Languages spoken: Dominican Islam: Question Answer Notes Islam 33 None Sexual Hx: Question Answer Notes [...] Information RESULTS No Results REASON FOR VISIT Refill - Oxycodone MEDICAL (GENERAL) HISTORY Type Description Date Medical [...] Insured Coverage Start Date Coverage End Date [facility] COMMUNITY PLAN [facility] [address] [facility] [phone] JASSON MCRAE self
--- OUTSIDE RECORDS SUMMARY | 2021-08-14 21:19 | CCD ---
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 Opiates [Presence] in Urine by Screen method Negative [facility] Oxycodone [Presence] in Urine by Screen method Negative [facility] Fentanyl+Norfentanyl [Presence] in Urine by Screen method Negative [facility] Service comment [facility] Results below the indicated cutoff (ng/m L), are reported as"Negative." Note: for medical purposes only; not valid for legalor employment testing. ID Date Data Source [id number] 09/04/2020 12:02:25 PM [facility] Name Value Range Interpretation Code Description Data Laure rce(s) Supporting Document(s) Progress Note [facility] BQISYm7yObTTSqCc38/SGSyxZELch9RoXMpfUSf8YHllSVBaX5ApBJB9yM7lFMN4NGsQDfXxSjPnCVJ8 [facility] [file] ICAgICAgICAgICAgICAgICAgICAgICAgICAgICAgIC AgICAgICAgICAgICAgICAgICAgICAgICAgICAgICAgICAgICAgICAgICAgICAgICAgICAgICAgICAgIC YyFEBmNR0QIQNhPWXxJNUxEJHbMRGoWLVvUTWeWOBaGKFqBTJxFHGsEBWgXQTbXYVrLFQsVYWwZEJrPQ AgICAgICAgICAgICAgICAgICAgICAgICAgICAgICAg UPJuWYTdNVIuZSNtMPVjKF9CIEPeVOVuORNdQGYmZEKwMABmGQBaHUEsYNFcQCYkGDMiSYJjTHSxLEBi LXGpENSbZLGuEPFrHSTqZPYaLRKsZMBcURAhNFIpQTSjICGyQMOkJAKbXZOcMKWdRIWvXFReAESmQX7X ICAgICAgICAgICAgICAgICAgICAgICAgICAgICAgIC AgICAgICAgICAgICAgICAgICAgICAgICAgICAgICAgICAgICAgICAgICAgICAgICAgICAgICAgICAgIC UcTWIuTLCcAT9AYRKlSMQvXZUpGRDhLPQmWQBfFCEcBCGrAPYyQQLrYSKhEVUcATMaQRWaCBJxHUUcPU AgICAgICAgICAgICAgICAgICAgICAgICAgICAgICAg CLRiKWDkPBCbPUXeBXXbQGOiZD1WSFKaKZAmEOOhNJXwMHWjKTByQQEoPSLxCWEyRFOnIHCkFKTaFBEo ICAgICAgICAgICAgICAgICAgICAgICAgICAgICAgICAgICAgICAgICAgICAgICAgICAgICAgICAgICAg MN4PSDTtSKLnBZLbVFXaOLIwRVUjWTTmLAXfJCFyMW AgICAgICAgICAgICAgICAgICAgICAgICAgICAgICAgICAgICAgICAgICAgICAgICAgICAgICAgICAgIC KrHTIfCSVlSTCjDV4IDGYgDIXyRSSuYPBhCCRwTINjTSDfAAGoBMNdFNDaSKCoKSSbWMQzJBZyZKKfYL AgICAgICAgICAgICAgICAgICAgICAgICAgICAgICAg NWNzLRPhLBZwZQZlTJYoZPNuOQBgIE4TYOUnRAMcYYJkLOFrXPBaXXCdQNVbTGHaBOVrTGRyFVZwUEHh ICAgICAgICAgICAgICAgICAgICAgICAgICAgICAgICAgICAgICAgICAgICAgICAgICAgICAgICAgICAg REOjEY3YRK22lSItz3E9WEZnHG7hcaa/Nk8KTJrkyw FyzNBmCC9YUnIdGN2jkl8PHhPaHK9eet5UIQmSQsAmL4K5iVSfRKEgTCBFSaAnG07dTPwxFh68EWquRZ DsMhAeTRs2Aw8RToXsC6opOPFnMqO8GLUwXkE7MNDjGdZ8AXKwEfAnGRgqLH5Nj1GekOIuJRw+Pg0KZW 3zv1WtIOubMmIrVG8jia0PPGjVObFxJ4MyviD4QZY7 NEMuVa7FHFHwIXDdkKDvJWPbBOLYCdQpI2BisV93YUWJRa9+WYtmyuUhTpsAIwF9WTMdw8HtOQf3WN2W OCHwOXa5iMLvMZBxV6Kdh4WpHo65RSAmIrltU2QdoFR8MXBlQ2GhDS0uGATRIPJwbXSgSW3wLv4lDTPs QFZpEwFmEUNNKZ9AYWIqNBXwfKReWXJjBWELKK8SVA weHFC5NUEyhnOpdRPoAGciOD8TOODohxYrJcOlNUFQSIy+Tm0ZZK8et8UiPCrzVHOmFY3uun8UQVyYEh QcK2J7tWNvL1B9DRhqZl7XWRFqRAHpVgPkBTNHIVvdDA2IZD1ibrQ8MU6DzAHsRHOaVMVppUZgMCz7V0 3yeULsDQyuGZ2OYFQ+Blanca+Wt4ASHRqFCRiRHIbJaLh QFRGRkIiO7KaN2HMe7KgV8HeRB76bDvcrxGtLSwnNH8FHU7tZPYrWGRFYG2OdFLiyB6lnsWrIrGdMHJW ViPaW34npFOwZDYfFMJmMJOtTq1GBSMiY9VixxBqhPdjxmMaILNlBYTTZY8VFOwqwkDqkWIrwEbdMN28 fJjxYK6MZd3AGwPbPH2ynr7PbAUpRr5SPDCdNk8RZY EdPZHbKCAlIDJ5VBJtKhSnDPdhBHTuVSPnUWQ5DKHjBEHkPP6DOdPyUBYhVuZjRVXbNYKzZQVwmr6YIQ VsKSInNJHpIQRdIHXmAJEkVHsdPQJiXITrZTK8UWJyJRQdRN7ODpBcXZRgTJG5JuvxBNHqUBTtrc3IHH UuPYTxIzN6KqRaXGKsBUJkAWujQZXbLKM2BNS1LHXl WFOcGE6XMvWyWJRtIEEbFTToDJClENYebr2OXVJwDBLfMGCrZIPwCWYaOKJuPSpmUBAcDBV3QiG7LHOp HSUyDS8ZDmWeINIgSRvwPVRrPFTpKIGhdb5QMLWgAGXtQGS7ILKoOFRwRVLsXSvlKWMsGAQ6RMH7LMBh JNTpWD4FSqAjTAGaTGD7BlBwKNEiKIKegt3PCZRtFZ KkPMptNKWeALIoQAFvGQigHJOwMLGzQCNlSANzMGRbDN6ETeVcYOCyLaPtNOJcVQYuUBLcti6PWKKyRT MnMpE2OODaWWZhETEkVUqyAGVoFSZhPVc9VMDkJRBzKT1PCqHeGTAgPfQkTmpmWOQoZOVgaj7TJBCcBP IqUqI8KxPcCOPbLAOoLUnpUHYfYFRfTkp8EHVfKPPl OF7IAjNdMTJnCgVbNdBtSVUeVTSugr8CTKMvVIKjWCG5NPLoGTOzYVSiSQpbDYOgZEZ8SrE3XUVbIMCu OG8ROqZxGItcVBXGKkw1MRuoD8x6YTMsTw6FB7Fyj5ZcEhXcDHYPDXxxQU8gssOkXQGwIh6FF9gNQte1 OQsnZLh4DQy9W7WrMBVgAFafLDG0GcIfEHIdRvD6Ll 0rKZq1OPInPXY4ArlpZ7GsOBK3GBMdLlLmQUZqYHPtNvnlBqIkOT8ZHs9AGtL8SYL2eNChWo3FDsV6NB UEBkHpKM0NXOv= ID Date Data Source [id number] 08/28/2020 10:03:40 AM EST [facility] Hospital Name Value Range Interpretation Code Description Data Laure rce(s) Supporting Document(s) Progress Note [facility] YIDSXk7zHhWIDoCi09/RPBznWAHbf0IuMEujMEp0BXcgKXAqK9WgUZX0bM0xDFY9AZiZXjIsKqNlEMX7 lbm [file] Em+614/i+SBd3dIF6ELHjhKlA/9RCwJ6pJ6G3HG [file] 0La0UhjcJ5cpZhJWieDZqoKP8FWVRKD8PQPn== ID Date Data Source [id number] 08/28/2020 01:37:47 PM [facility] Name Value Range Interpretation Code Description Data Laure rce(s) Supporting Document(s) Buprenorphine [Presence] in Urine Negative [facility] (NOTE)Positive results above the cutoff of 10 ng/mL are presumptive andunconfirmed. Confirmatory testing can be ordered at [place] [address] within 5 days of collection. ID Date Data Source [id number] 08/28/2020 01:37:47 PM [facility] Name Value Range Interpretation Code Description Data Laure rce(s) Supporting Document(s) Amphetamine [Presence] in Urine by Screen method Negative [facility] Benzodiazepines [Presence] in Urine by Screen method Negat [facility] Cannabinoids [Presence] in Urine by Screen method Negative [facility] (NOTE)Positive results are presumptive a nd unconfirmed;confirmatorytesting can be ordered at the [facility] at [facility] [place] [address] at [facility] within 5 days of collection. Benzoylecgonine [Presence] in Urine by Screen method Negat [facility] Methadone [Presence] in Urine by Screen method Negative [facility] Opiates [Presence] in Urine by Screen method Negative [facility] Oxycodone [Presence] in Urine by Screen method Negative [facility] Fentanyl+Norfentanyl [Presence] in Urine by Screen method Negative [facility] (NOTE)Positive results are presumptive a nd unconfirmed;confirmatorytesting can be ordered at the [facility] at [facility] [place] [address] at [facility] within 5 days of collection. Service comment [facility] Results below the indicated cutoff (ng/m L), are reported as"Negative." Note: for medical purposes only; not valid for legalor employment testing. ID Date Data Source [id number] 08/21/2020 08:31:51 PM [facility] Name Value Range Interpretation Code Description Data Laure rce(s) Supporting Document(s) Buprenorphine [Presence] in Urine Negative [facility] Results below the indicated cutoff(10 ng /mL), are reported as "Negative".Note - For medical purposed only.Not valid for legal or employment testing. ID Date Data Source [id number] 08/21/2020 08:31:51 PM [facility] Name Value Range Interpretation Code Description Data Laure rce(s) Supporting Document(s) Amphetamine [Presence] in Urine by Screen method Negative [facility] Benzodiazepines [Presence] in Urine by Screen method Negat [facility] Cannabinoids [Presence] in Urine by Screen method Negative [facility] (NOTE)Positive results are presumptive a nd unconfirmed;confirmatorytesting can be ordered at the [facility] at [address] [place] [address] at [address] within 5 days of collection. Benzoylecgonine [Presence] in Urine by Screen method Negat [facility] (NOTE)Positive results are presumptive a nd unconfirmed;confirmatorytesting can be ordered at the [facility] at [address] [place] [address] at [phone]-[facility] within 5 days of collection. Methadone [Presence] in Urine by Screen method Negative [facility] Opiates [Presence] in Urine by Screen method Negative [facility] (NOTE)Positive results are presumptive a nd unconfirmed;confirmatorytesting can be ordered at the [facility] at [address] [place] [address] at [phone] within 5 days of collection. Oxycodone [Presence] in Urine by Screen method Negative [facility] Fentanyl+Norfentanyl [Presence] in Urine by Screen method Negative [facility] (NOTE)Positive results are presumptive a nd unconfirmed;confirmatorytesting can be ordered at the [facility] at [address] [place] [address] at [phone] within 5 days of collection. Service comment [facility] Results below the indicated cutoff (ng/m L), are reported as"Negative." Note: for medical purposes only; not valid for legalor employment testing. ID Date Data Source [id number] 08/21/2020 03:37:33 PM [facility] Name Value Range Interpretation Code Description Data Laure rce(s) Supporting Document(s) Progress Note [facility] HNJKCp9rYvRGBeXl75/KRLmhJZMig9GcEFrrVAj6XBxhWOIfP5CqSGA4fL4bWAU7PSjFVnPrNhNfUNUq m TkRvsVEeOsPZZpJznUTfVlHBciQfucvKUfAX5MiAC3IXSuC98eFNWlDMOaB4BdPLN2RIO+Il4BPTKuiT SpUL8ONmoZ1F4so7wNFq5ojL/XIvZB5NXLiT+RdcQvmdmp7TVse4TU4IEo4K3lXXHLEAEat93KX2Ezqw csRL1hy+qfm9xTvmY5gu79i4Em+b2JVCq7r3XC4c/1 d1MrnIZE/jfBgaNe39xx2/zJXiIfOFZkhdUHxZ+u/iNGh96RgUbBLkQV+ZVw9NMXdqcoyoryrulYcyCE 7gwRCjsjeGfV1XmZr+1AqAoTytvO4e7/Isreal/yRoa5f7qbCXGiCBr19lsgPhIvE79jPwNhENIeLJBO7Za [file] XvDGToPTnuQWw7HSB4HOF9QjWrISydXj6dLLJREy2+YRwqaWEmtSohNSFXQvP3IQF2NMgdTHLCTm9X Procedure Social History Code Duration Value Status Description Data Source(s ) Smoking 08/01/2021 12:00:00 AM EDT Current Smoker completed Curre nt Smoker eCW1 ([facility]) Smoking 08/01/2021 12:00:00 AM EDT Current Smoker completed Curre nt Smoker eCW1 ([facility]) Smoking 08/01/2021 12:00:00 AM EDT Current Smoker completed Curre nt Smoker eCW1 ([facility]) Smoking 08/01/2021 12:00:00 AM EDT Current Smoker completed Curre nt Smoker eCW1 ([facility]) Smoking 10/12/2020 12:00:00 AM EST Current some day smoker com pleted Current some day smoker eCW1 ([facility]) Smoking 10/12/2020 12:00:00 AM EST Current some day smoker com pleted Current some day smoker eCW1 ([facility]) Smoking 10/12/2020 12:00:00 AM EST Current some day smoker com pleted Current some day smoker eCW1 ([facility]) Alcohol intake 10/09/2020 12:00:00 AM EST Current non-d carmencita of alcohol (finding) completed Current non-drinker of alcohol (finding) [facility] Tobacco use and exposure 10/09/2020 12:00:00 AM EST Never used co mpleted Never used [facility] Smoking 10/09/2020 12:00:00 AM EST Current some day smoker com pleted Current some day smoker [facility] Alcohol intake 09/04/2020 12:00:00 AM EST Current non-d carmencita of alcohol (finding) completed Current non-drinker of alcohol (finding) [facility] Alcohol intake 08/28/2020 12:00:00 AM EST Current non-d carmencita of alcohol (finding) completed Current non-drinker of alcohol (finding) [facility] Vital Signs ID Date Data Source UNK Name Value Range Interpretation Code Description Data Source(s) Body weight 161.8 [lb_av] 161.8 [lb_av] [facility] Body height [in_i] eCW1 ([facility]) Body mass index (BMI) [Ratio] 21.94 kg/m2 21.94 kg/m2 eCW1 ([facility]) Heart rate 64 /min 64 /min eCW1 ([facility]) Respiratory rate 16 /min 16 /min eCW1 ([facility]) Body temperature 98.8 [degF] 98.8 [degF] eCW1 ( [facility]) Systolic blood pressure 125 mm[Hg] 125 mm[Hg] e CW1 ([facility]) Diastolic blood pressure 75 mm[Hg] 75 mm[Hg] eCW1 ([facility]) ID Date Data Source [id number] 09/04/2020 10:18:31 PM [facility] Name Value Range Interpretation Code Description Data Source(s) WEIGHT RECORDED 158 lb 158 lb [facility] Body height Measured 72.01 in 72.01 in Health system ID Date Data Source [id number] 08/28/2020 01:37:56 PM [facility] Name Value Range Interpretation Code Description Data Source(s) WEIGHT RECORDED 158 lb 158 lb [facility] Body height Measured 72.01 in 72.01 in Health system Patient Treatment Plan of Care Planned Activity Planned Date Details Description Data Source (s) zaleplon 10 MG Oral Capsule 08/07/2021 12:00:00 AM EDT eCW1 ([facility]) Eszopiclone 3 MG Oral Tablet [Lunesta] 08/06/2021 12:00:00 AM EDT eCW1 ([facility]) Eszopiclone 3 MG Oral Tablet [Lunesta] 08/06/2021 12:00:00 AM EDT eCW1 ([facility]) Eszopiclone 3 MG Oral Tablet [Lunesta] 08/06/2021 12:00:00 AM EDT eCW1 ([facility]) Trazodone Hydrochloride 50 MG Oral Tablet 08/01/2021 12:00:00 AM ED T eCW1 ([facility]) Trazodone Hydrochloride 50 MG Oral Tablet 08/01/2021 12:00:00 AM ED T eCW1 ([facility]) Trazodone Hydrochloride 50 MG Oral Tablet 08/01/2021 12:00:00 AM ED T eCW1 ([facility]) Trazodone Hydrochloride 50 MG Oral Tablet 08/01/2021 12:00:00 AM ED T eCW1 ([facility]) gabapentin 100 MG Oral Capsule 07/27/2021 12:00:00 AM EDT eCW1 ([facility]) gabapentin 100 MG Oral Capsule 07/27/2021 12:00:00 AM EDT eCW1 ([facility]) gabapentin 100 MG Oral Capsule 07/27/2021 12:00:00 AM EDT eCW1 ([facility]) gabapentin 100 MG Oral Capsule 07/27/2021 12:00:00 AM EDT eCW1 ([facility]) Oxycodone Hydrochloride 5 MG Oral Tablet 10/12/2020 12:00:00 AM EST eCW1 ([facility]) Oxycodone Hydrochloride 5 MG Oral Tablet 10/12/2020 12:00:00 AM EST eCW1 ([facility]) Oxycodone Hydrochloride 5 MG Oral Tablet 10/12/2020 12:00:00 AM EST eCW1 ([facility]) Buprenorphine 8 MG / Naloxone 2 MG Oral Strip 09/26/2020 12:00:00 [facility] Buprenorphine 12 MG / Naloxone 3 MG Oral Strip 09/11/2020 12:00:00 AM [facility] Buprenorphine 12 MG / Naloxone 3 MG Oral Strip 09/04/2020 12:00:00 AM [facility] Buprenorphine 12 MG / Naloxone 3 MG Oral Strip 08/28/2020 12:00:00 AM [facility] Buprenorphine 12 MG / Naloxone 3 MG Oral Strip 08/28/2020 12:00:00 AM [facility] Buprenorphine 8 MG / Naloxone 2 MG Oral Strip 08/28/2020 12:00:00 A [facility] Buprenorphine 8 MG / Naloxone 2 MG Oral Strip 08/21/2020 12:00:00 [facility] Oxycodone Hydrochloride 5 MG Oral Tablet 08/01/2020 12:00:00 AM EDT eCW1 ([facility]) Oxycodone Hydrochloride 5 MG Oral Tablet 08/01/2020 12:00:00 AM EDT eCW1 ([facility])
[2021-08-14] MEDS ORDERED: NS 1,000 ML IV ONE (21:25)
--- OUTSIDE RECORDS SUMMARY | 2021-08-14 21:27 | CCD ---
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 FhrGTsBI4PXtQqDQ1xfb2KPaXwYJ0lng3ZETeYTzZkU3E2kYYvNZMnWYUYOdYdF03zWMnxBs03ZRcbNZ JjKdIiBAs4Zv2YBgScJ4orALFfKpC5JINxOyV2RZLyRrE2CWVmWeUnHIrxTS0Na0MotMKqDGc+Pg0KZW 4nj0OnNKveYyKfHQ2tcq2BAXbKObWwG9YxkqC0HMX3 OGRrUz7YTBHjVGAqnMEbVNWmEFNOYxSsG8WymE11IALGDz4+UCjafzIxHtqWFgA1JXIau2RiGBv4QJ5J ELXeSAg8iSOcVQJqN6Eiw5JjOq39AOPkQjyuD8FgbKP6ULYlT4YmNB2sOIGCTUCfdVHrXA9cMn1vZFSw SBCtCsVtPOBMWP8OIOQgSEQsmOIySEXrCIDFVH2BLA arURR2YLSrqwCaiCJcBQxoWK3HXAVvegMzSpGiLWSCNQy+Eb0AOC5cw0EdZAztGWBrQW1uia3MYKjOAy GzI0K1qXKzO7D8DAusAb9KGICqFJNcSvApRHJTMCbvNC8PKP9pbqP6PC8GyMKbHKVyAHLhhPPnSMz3R8 8kvKZgWEvvMY8ZGJM+Blanca+Oy2BJVJcPZBsOSDnDdNo PECVVjMkF9AdR5SRi6FuZ3PzGA76sGabyxHmJCmwKW4ELO1xMDHqNYHGZQ4YaEGcjT2bwdCfThFcJRTD QpHwV55itGDsJFMsDVOeGSRxFw4QGYHfL6CikyWgoIjqshPyGBYlUAOCXA6XPVbzatLudXMitVizQJ79 sHuvHD2TEz9YOfLzZI4gog4LoXAnEa6LAFSxTf7BSN MtZTThDJDbZJN5NERjAiUbLBokJBOoMVNlEIQ9EZVePKYrSY1LQfWfCMWcMwSsKELpLSKlPBJvsu2CLZ KlHKYwGCGvAGPvTNGvAALkUHnuTBWdIVJcEKH4VRGhHESsCT2XSvIfSBFeBUJ6DfwkDCQmHMHiry7QMZ OjERVxVvR0KqSvWNBiVFQwMLfpTVCqOXI2ZSG9PGIh ZITfDC4VCkPrOBTxUDFyIJSpKVJxIPCzoq6TECTdFABfTCUuLWYdJXQyNZBiKBeqWRFbMWI9IgC7DJZj AXIhGO2KKmXxMMMiCKxkJMTtVERoHGIiri3FZKCmEJBdEYK7ALGsMYFvYLSvJRyqYEAkPMU9HMJ0VHCq QWRmEZ7RBuGoRVTbSWV8RoTyJFWbOGNgew6LQQTsIC ZrPVpjVGKlVZEcJZMdXSvlRPZtZZDhEHDbTPPdVBPfVS6OQxYyIWCxRcUbWVOgRIKdRSPwbk7RRSHkKE TwUdJ3ZGTbHOZxIENyPOnfFWOuLVGpZXg0GYLhWQZcHP4KZmYpWTLkTnFnJippIZIoBJBvjv3UNFReKP OvEiO3JjFxZXVmHDFcIUqlICHgLXHwKeg4XXJcAWBa UM8XQlJcMRRgPmLsMyGoTSEaBUJvlf5BVVUcDNJkTDK9KLUvSNZbMJAhFYbaYYVxXIT5ZvY5SRIdTNFb OT0MGkDdVNbnDHKURgs3DPsvD4m1UXKwBl9NW1Kyp3MlPsZgTAPAOKeyLF6ethTkOBKjCh3OZ5dLQdn6 ODrvTNs0DNg9I3LlMBElREreBUR5AsSxYWBmPqV2Tt 0vLDc6DEHgSIE1HpfvY5RnFDY9VCMxQdKyGDMwERKsYotcBnXoMM4XTi1WGiP2QXN8mIIgIs0QSmL4HP BUNvXoMQ0EUVs= ID Date Data Source [id number] 08/28/2020 10:03:40 AM EST [facility] Name Value Range Interpretation Code Description Data Laure rce(s) Supporting Document(s) Progress Note [facility] BERDYi8vBsDWAhOs44/AUOmpCETal3CzYQpnYCl4SKavMONdV2ZwINO4cT9rYQR9ADkNArHaYuLmTFZ8 lbm [file] Em+614/i+SNw3jQH0PWQfoChV/4INlE1oB1I1LM [file] 1Xv2OorhA1mzEsBKejNUfiOT3ZYPVYM1EPOi== ID Date Data Source [id number] 08/28/2020 01:37:47 PM [facility] Name Value Range Interpretation Code Description Data Laure rce(s) Supporting Document(s) Buprenorphine [Presence] in Urine Negative [facility] (NOTE)Positive results above the cutoff of 10 ng/mL are presumptive andunconfirmed. Confirmatory testing can be ordered at [place] [address] within 5 days of collection. ID Date Data Source [id number] 08/28/2020 01:37:47 PM [facility] Name Value Range Interpretation Code Description Data Laure rce(s) Supporting Document(s) Amphetamine [Presence] in Urine by Screen method Negative [facility] Benzodiazepines [Presence] in Urine by Screen method Negat [facility] Cannabinoids [Presence] in Urine by Screen method Negative [facility] (NOTE)Positive results are presumptive a nd unconfirmed;confirmatorytesting can be ordered at the [facility] at [facility] [place] [address] at [facility] within 5 days of collection. Benzoylecgonine [Presence] in Urine by Screen method Negat [facility] Methadone [Presence] in Urine by Screen method Negative [facility] Opiates [Presence] in Urine by Screen method Negative [facility] Oxycodone [Presence] in Urine by Screen method Negative [facility] Fentanyl+Norfentanyl [Presence] in Urine by Screen method Negative [facility] (NOTE)Positive results are presumptive a nd unconfirmed;confirmatorytesting can be ordered at the [facility] at [facility] [place] [address] at [facility] within 5 days of collection. Service comment [facility] Results below the indicated cutoff (ng/m L), are reported as"Negative." Note: for medical purposes only; not valid for legalor employment testing. ID Date Data Source [id number] 08/21/2020 08:31:51 PM [facility] Name Value Range Interpretation Code Description Data Laure rce(s) Supporting Document(s) Buprenorphine [Presence] in Urine Negative [facility] Results below the indicated cutoff(10 ng /mL), are reported as "Negative".Note - For medical purposed only.Not valid for legal or employment testing. ID Date Data Source [id number] 08/21/2020 08:31:51 PM [facility] Name Value Range Interpretation Code Description Data Laure rce(s) Supporting Document(s) Amphetamine [Presence] in Urine by Screen method Negative [facility] Benzodiazepines [Presence] in Urine by Screen method Negat [facility] Cannabinoids [Presence] in Urine by Screen method Negative [facility] (NOTE)Positive results are presumptive a nd unconfirmed;confirmatorytesting can be ordered at the [facility] at [address] [place] [address] at [facility] within 5 days of collection. Benzoylecgonine [Presence] in Urine by Screen method Negat [facility] (NOTE)Positive results are presumptive a nd unconfirmed;confirmatorytesting can be ordered at the [facility] at [address] [place] [address] at [address] within 5 days of collection. Methadone [Presence] in Urine by Screen method Negative [facility] Opiates [Presence] in Urine by Screen method Negative [facility] (NOTE)Positive results are presumptive a nd unconfirmed;confirmatorytesting can be ordered at the [facility] at [address] [place] [address] at [phone] within 5 days of collection. Oxycodone [Presence] in Urine by Screen method Negative [facility] Fentanyl+Norfentanyl [Presence] in Urine by Screen method Negative [facility] (NOTE)Positive results are presumptive a nd unconfirmed;confirmatorytesting can be ordered at the [facility] at [address] [place] [address] at [address] within 5 days of collection. Service comment [facility] Results below the indicated cutoff (ng/m L), are reported as"Negative." Note: for medical purposes only; not valid for legalor employment testing. ID Date Data Source [id number] 08/21/2020 03:37:33 PM [facility] Name Value Range Interpretation Code Description Data Laure rce(s) Supporting Document(s) Progress Note [facility] GRCFJh2yCeTNQbBd57/GMRewDSBck5BoHLnmRGi8TKboESPyB9UzHTQ8wG7mVBE1YOeBCvLrGnMfRONy m SnZpjTZcJpRIAqNjePZwPrFKrkXwtcrJXiJF1JaAM5TAMcV08dRSFqGYBjR8QaWLY5YAV+Kk7JACDzsA XaJY7DPqoK6C4xi1cNBk6yiZ/HMdST0CKFbX+AcgCuvyhc2GBgc2KP0FDu6S5pGHHRXEQhl23PN9Yiis ifRW6oa+qom4oAuyL9ny84q3Vk+y9KIWt1k3WX5i/1 a3OnjDSP/zqYsgGa61wr8/zJXiIfOFZkhdUHxZ+u/gTQl50LoLgMOfUD+XSj1AZVvnbrqlfejdfMtjNA 5pdJQxlwlMiY0BaNx+2GlUiBomtL1l8/Isreal/nWbw9y1ksVEXzNMv01wvkAjOmW13hCdKqVWOsUBUO0Xt [file] TuWXDeWKxdVTw9GDO8FZU4OlQpINxlWr6yVVICEk9+JPdzrVHnnNhgXWUWVrU3QMJ6TBilBNAVDs6K Procedure Social History Code Duration Value Status Description Data Source(s ) Smoking 08/01/2021 12:00:00 AM EDT Current Smoker completed Curre nt Smoker eCW1 ([facility]) Smoking 08/01/2021 12:00:00 AM EDT Current Smoker completed Curre nt Smoker eCW1 ([facility]) Smoking 08/01/2021 12:00:00 AM EDT Current Smoker completed Curre nt Smoker eCW1 ([facility]) Smoking 08/01/2021 12:00:00 AM EDT Current Smoker completed Curre nt Smoker eCW1 ([facility]) Smoking 10/12/2020 12:00:00 AM EST Current some day smoker com pleted Current some day smoker eCW1 ([facility]) Smoking 10/12/2020 12:00:00 AM EST Current some day smoker com pleted Current some day smoker eCW1 ([facility]) Smoking 10/12/2020 12:00:00 AM EST Current some day smoker com pleted Current some day smoker eCW1 ([facility]) Alcohol intake 10/09/2020 12:00:00 AM EST Current non-d carmencita of alcohol (finding) completed Current non-drinker of alcohol (finding) [facility] Tobacco use and exposure 10/09/2020 12:00:00 AM EST Never used co mpleted Never used [facility] Smoking 10/09/2020 12:00:00 AM EST Current some day smoker com pleted Current some day smoker [facility] Alcohol intake 09/04/2020 12:00:00 AM EST Current non-d carmencita of alcohol (finding) completed Current non-drinker of alcohol (finding) [facility] Alcohol intake 08/28/2020 12:00:00 AM EST Current non-d carmencita of alcohol (finding) completed Current non-drinker of alcohol (finding) [facility] Vital Signs ID Date Data Source UNK Name Value Range Interpretation Code Description Data Source(s) Body weight 161.8 [lb_av] 161.8 [lb_av] eCW1 ([facility]) Body height [in_i] eCW1 ([facility]) Body mass index (BMI) [Ratio] 21.94 kg/m2 21.94 kg/m2 eCW1 ([facility]) Heart rate 64 /min 64 /min eCW1 ([facility]) Respiratory rate 16 /min 16 /min eCW1 ([facility]) Body temperature 98.8 [degF] 98.8 [degF] eCW1 ( [facility]) Systolic blood pressure 125 mm[Hg] 125 mm[Hg] e CW1 ([facility]) Diastolic blood pressure 75 mm[Hg] 75 mm[Hg] eCW1 ([facility]) ID Date Data Source [id number] 09/04/2020 10:18:31 PM [facility] Name Value Range Interpretation Code Description Data Source(s) WEIGHT RECORDED 158 lb 158 lb [facility] Body height Measured 72.01 in 72.01 in [facility] ID Date Data Source [id number] 08/28/2020 01:37:56 PM [facility] Name Value Range Interpretation Code Description Data Source(s) WEIGHT RECORDED 158 lb 158 lb [facility] Body height Measured 72.01 in 72.01 in [facility] Patient Treatment Plan of Care Planned Activity Planned Date Details Description Data Source (s) zaleplon 10 MG Oral Capsule 08/07/2021 12:00:00 AM EDT eCW1 ([facility]) Eszopiclone 3 MG Oral Tablet [Lunesta] 08/06/2021 12:00:00 AM EDT eCW1 ([facility]) Eszopiclone 3 MG Oral Tablet [Lunesta] 08/06/2021 12:00:00 AM EDT eCW1 ([facility]) Eszopiclone 3 MG Oral Tablet [Lunesta] 08/06/2021 12:00:00 AM EDT eCW1 ([facility]) Trazodone Hydrochloride 50 MG Oral Tablet 08/01/2021 12:00:00 AM ED T eCW1 ([facility]) Trazodone Hydrochloride 50 MG Oral Tablet 08/01/2021 12:00:00 AM ED T eCW1 ([facility]) Trazodone Hydrochloride 50 MG Oral Tablet 08/01/2021 12:00:00 AM ED T eCW1 ([facility]) Trazodone Hydrochloride 50 MG Oral Tablet 08/01/2021 12:00:00 AM ED T eCW1 ([facility]) gabapentin 100 MG Oral Capsule 07/27/2021 12:00:00 AM EDT eCW1 ([facility]) gabapentin 100 MG Oral Capsule 07/27/2021 12:00:00 AM EDT eCW1 ([facility]) gabapentin 100 MG Oral Capsule 07/27/2021 12:00:00 AM EDT eCW1 ([facility]) gabapentin 100 MG Oral Capsule 07/27/2021 12:00:00 AM EDT eCW1 ([facility]) Oxycodone Hydrochloride 5 MG Oral Tablet 10/12/2020 12:00:00 AM EST eCW1 ([facility]) Oxycodone Hydrochloride 5 MG Oral Tablet 10/12/2020 12:00:00 AM EST eCW1 ([facility]) Oxycodone Hydrochloride 5 MG Oral Tablet 10/12/2020 12:00:00 AM EST eCW1 ([facility]) Buprenorphine 8 MG / Naloxone 2 MG Oral Strip 09/26/2020 12:00:[address] [facility] Buprenorphine 12 MG / Naloxone 3 MG Oral Strip 09/11/2020 12:00:[address] [facility] Buprenorphine 12 MG / Naloxone 3 MG Oral Strip 09/04/2020 12:00:[address] [facility] Buprenorphine 12 MG / Naloxone 3 MG Oral Strip 08/28/2020 12:00:[address] [facility] Buprenorphine 12 MG / Naloxone 3 MG Oral Strip 08/28/2020 12:00:[address] [facility] Buprenorphine 8 MG / Naloxone 2 MG Oral Strip 08/28/2020 12:00:[address] [facility] Buprenorphine 8 MG / Naloxone 2 MG Oral Strip 08/21/2020 12:00:[address] [facility] Oxycodone Hydrochloride 5 MG Oral Tablet 08/01/2020 12:00:00 AM EDT eCW1 ([facility]) Oxycodone Hydrochloride 5 MG Oral Tablet 08/01/2020 12:00:00 AM EDT eCW1 ([facility])
[2021-08-14 21:45] LABS: ABG BASE EXCESS -4.4 (-2.0-2.0); ABG HCO3 30.3 MEQ/L (22.0-26.0); ABG O2 SATURATION 97.8 % (95.0-99.0); ABG PARTIAL PRESSURE O2 142.2 mmHg (75.0-100.0); ABG STANDARD HCO3 20.9 MEQ/L (22.0-26.0); ABG TOTAL CO2 33.9 MEQ/L (22.0-29.0)
[2021-08-14 21:47] LABS: ABG PARTIAL PRESSURE CO2 118.6 mmHg (35.0-45.0); ABG pH (ARTERIAL) 7.025 UNITS (7.350-7.450)
[2021-08-14 21:51] LABS: BASO # 0.1 10^3/uL (0.0-0.2); BASO % 0.5 % (0.0-1.0); EOS # 0.2 10^3/uL (0.0-0.5); EOS % 0.8 % (0.0-3.0); HEMATOCRIT 45.8 % (42.0-52.0); HEMOGLOBIN 15.4 g/dl (13.5-17.5); LYMPH # 3.9 10^3/uL (1.5-5.0); MEAN CORPUSCULAR HGB CONC 33.6 g/dl (32.0-36.5); MEAN CORPUSCULAR VOLUME 86.3 fl (80.0-96.0); MONO # 1.3 10^3/uL (0.0-0.8); MONO % 6.3 % (2.0-8.0); NEUTROPHILS # 15.2 10^3/uL (1.5-8.5); PLATELET COUNT, AUTOMATED 423 10^3/uL (150-450); RED BLOOD COUNT 5.31 10^6/uL (4.30-6.10); WHITE BLOOD COUNT 20.8 10^3/uL (4.0-10.0)
[2021-08-14] MEDS ORDERED: NALOXONE 2MG/2ML SYRINGE (J2310 PER 1MG) IV STA (21:51)
[2021-08-14 22:18] LABS: ACETAMINOPHEN LEVEL < 2.0 UG/ML (10.0-30.0); ALBUMIN 3.9 GM/DL (3.2-5.2); ALT/SGPT 22 U/L (12-78); BILIRUBIN,DIRECT < 0.1 MG/DL (0.0-0.2); BILIRUBIN,TOTAL 0.2 MG/DL (0.2-1.0); BLOOD UREA NITROGEN 16 MG/DL (7-18); CALCIUM LEVEL 9.3 MG/DL (8.5-10.1); CARBON DIOXIDE LEVEL 35 MEQ/L (21-32); CHLORIDE LEVEL 101 MEQ/L (98-107); CPK CREATINE PHOSPHOKINASE 103 U/L (39-308); CREATININE FOR GFR 1.41 MG/DL (0.70-1.30); ETHYL ALCOHOL (ETHANOL) < 0.003 % (0.000-0.010); GLOMERULAR FILTRATION RATE 57.1 (>60); GLUCOSE, FASTING 220 MG/DL (70-100); POTASSIUM SERUM 3.6 MEQ/L (3.5-5.1); SALICYLATE LEVEL < 1.7 MG/DL (5.0-30.0); SODIUM LEVEL 137 MEQ/L (136-145); TOTAL PROTEIN 7.3 GM/DL (6.4-8.2)
[2021-08-14 22:44] LABS: AMPHETAMINES LEVEL URINE NEGATIVE (NEGATIVE); BARBITURATES URINE NEGATIVE (NEGATIVE); BENZODIAZEPINES URINE NEGATIVE (NEGATIVE); CANNABINOIDS URINE POSITIVE (NEGATIVE); COCAINE METABOLITE URINE NEGATIVE (NEGATIVE); METHADONE URINE NEGATIVE (NEGATIVE); OPIATES URINE POSITIVE (NEGATIVE); PHENCYCLIDINE URINE NEGATIVE (NEGATIVE)
--- NOTE | 2021-08-14 22:58 | REPVR ---
PROCEDURE INFORMATION: Exam: XR Chest Exam date and time: 08/14/2021 10:23 PM Age: 46 years old Clinical indication: Other: AMS TECHNIQUE: Imaging protocol: XR of the chest. Views: 1 view. COMPARISON: CR CHEST 2 VIEW 08/16/2020 9:22 AM. Prior report has not been made available for review at the time of this emergent interpretation, however was requested. FINDINGS: LUNGS and PLEURAL SPACE: The lungs are symmetrically expanded. Lung volumes are pronounced. This may be secondary to vigorous inspiratory effort, or air trapping from underlying COPD/emphysema. No evidence of peribronchial thickening. There is no consolidation, pneumothorax, or pleural effusion. No evidence of pulmonary vascular redistribution or overt edema. MEDIASTINUM: There is no mediastinal shift or widening. CARDIAC SILHOUETTE: Cardiothoracic ratio is within normal limits. BONY THORAX: No acute findings are seen. IMPRESSION: No acute infiltrate. Other findings discussed above. Electronically signed by: Brock Sylvester On 08/14/2021 22:57:57 PM
--- NOTE | 2021-08-14 23:31 | REPVR ---
PROCEDURE INFORMATION: Exam: CT Head Without Contrast Exam date and time: 08/14/2021 10:59 PM Age: 46 years old Clinical indication: Altered mental status/memory loss; Additional info: AMS TECHNIQUE: Imaging protocol: Computed tomography of the head without contrast. Radiation optimization: All CT scans at this facility use at least one of these dose optimization techniques: automated exposure control; mA and/or kV adjustment per patient size (includes targeted exams where dose is matched to clinical indication); or iterative reconstruction. COMPARISON: No relevant prior studies available. FINDINGS: Images through the base of the brain and posterior fossa, including the brainstem are slightly degraded by beam hardening artifacts from the adjacent calvarium. There is no evidence of acute intracranial hemorrhage, extra axial fluid collection or hematoma. There is no midline shift or herniation. The ventricles are not dilated. No evidence of pneumocephalus. No CT findings are seen at the current time to suggest changes of acute territorial vascular infarction. Note is made however, that CT changes, may lag clinical findings in acute CVA. If clinically indicated, consideration could be given to MRI with diffusion weighted imaging, due to its greater sensitivity, for early detection of acute ischemic change. No evidence of regional or global edema. Incidental intracranial calcifications are noted. No pericranial scalp hematoma is seen. Clinical correlation for significance of dysconjugate ocular gaze. No acute cranial vault fracture is seen. No fluid is seen within the visualized paranasal sinuses or mastoid air cells. The visualized middle ear cavities are not opacified. There is some debris within the left external auditory canal which could be correlated directly with clinical exam. IMPRESSION: No evidence of an acute intracranial abnormality. No evidence of acute territorial major vessel infarct, mass effect, or hemorrhage. Other incidental findings discussed above. Electronically signed by: Brock Sylvester On 08/14/2021 23:30:59 PM
[2021-08-15 00:51] LABS: ABG HCO3 23.9 MEQ/L (22.0-26.0); ABG O2 SATURATION 96.8 % (95.0-99.0); ABG PARTIAL PRESSURE CO2 44.9 mmHg (35.0-45.0); ABG PARTIAL PRESSURE O2 91.9 mmHg (75.0-100.0); ABG STANDARD HCO3 22.8 MEQ/L (22.0-26.0); ABG TOTAL CO2 25.3 MEQ/L (22.0-29.0); ABG pH (ARTERIAL) 7.344 UNITS (7.350-7.450)
[2021-08-15 01:30] VITALS: BP 137/83
--- NOTE | 2021-08-16 19:59 | ECGEPIP ---
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
== END 2021-08-15 01:58 | disposition home or self-care (01) ==
LOC: M ED 21:12
DX: T40.1X1A Poisoning by heroin, accidental (unintentional), initial encounter (principal); X58.XXXA Exposure to other specified factors, initial encounter; Y92.89 Other specified places as the place of occurrence of the external cause
CPT/HCPCS: 36415; 36600; 51702; 70450; 71045; 80048; 80076; 80143; 80307; 82077; 82550; 82803; 84443; 85025; 93005; 93041; 96361; 96374; 99285; J2310

== ENCOUNTER → 2021-08-23 | Outpatient (REF) | payer OTHER ==
[2021-08-23 16:04] LABS: HEMATOCRIT 43.9 % (42.0-52.0); HEMOGLOBIN 14.6 g/dl (13.5-17.5); MEAN CORPUSCULAR HEMOGLOBIN 29.4 pg (27.0-33.0); MEAN CORPUSCULAR HGB CONC 33.3 g/dl (32.0-36.5); MEAN CORPUSCULAR VOLUME 88.3 fl (80.0-96.0); PLATELET COUNT, AUTOMATED 401 10^3/uL (150-450); RED BLOOD COUNT 4.97 10^6/uL (4.30-6.10); WHITE BLOOD COUNT 7.6 10^3/uL (4.0-10.0)
[2021-08-23 16:56] LABS: ALBUMIN 3.6 GM/DL (3.2-5.2); ALT/SGPT 33 U/L (12-78); BILIRUBIN,TOTAL 0.4 MG/DL (0.2-1.0); BLOOD UREA NITROGEN 13 MG/DL (7-18); CALCIUM LEVEL 9.4 MG/DL (8.5-10.1); CARBON DIOXIDE LEVEL 30 MEQ/L (21-32); CHLORIDE LEVEL 98 MEQ/L (98-107); CREATININE FOR GFR 0.88 MG/DL (0.70-1.30); FREE T4 0.85 NG/DL (0.76-1.46); GLOMERULAR FILTRATION RATE > 60.0 (>60); GLUCOSE, FASTING 110 MG/DL (70-100); HEPATITIS B SURFACE ANTIGEN NEGATIVE (NEGATIVE); SODIUM LEVEL 136 MEQ/L (136-145); TOTAL PROTEIN 6.9 GM/DL (6.4-8.2); TOTAL T3 104.6 NG/DL (60.0-181.0)
[2021-08-23 17:20] LABS: HEPATITIS C VIRUS ABY INDEX < 0.0 INDEX (<0.8); HIV 1&2 SCREEN CENTAUR NEGATIVE (NEGATIVE)
[2021-08-23 17:43] LABS: GC DNA AMPLIFICATION NEGATIVE (NEGATIVE)
== END ==
LOC: M LABDRAWC 15:42
PROVIDERS: ATTEND Family Medicine
DX: R79.89 Other specified abnormal findings of blood chemistry (principal)

== ENCOUNTER → 2022-07-29 | Outpatient (REF) | payer OTHER ==
[2022-07-29 17:48] LABS: HEMOGLOBIN A1c 5.5 %
[2022-07-29 18:04] LABS: ALBUMIN 3.7 GM/DL (3.2-5.2); ALT/SGPT 22 U/L (12-78); BILIRUBIN,TOTAL 0.3 MG/DL (0.2-1.0); BLOOD UREA NITROGEN 13 MG/DL (7-18); CALCIUM LEVEL 8.9 MG/DL (8.5-10.1); CARBON DIOXIDE LEVEL 31 MEQ/L (21-32); CHLORIDE LEVEL 104 MEQ/L (98-107); CREATININE FOR GFR 0.95 MG/DL (0.70-1.30); GLOMERULAR FILTRATION RATE > 60.0 (>60); GLUCOSE, FASTING 104 MG/DL (70-100); POTASSIUM SERUM 4.5 MEQ/L (3.5-5.1); SODIUM LEVEL 138 MEQ/L (136-145); TOTAL PROTEIN 6.6 GM/DL (6.4-8.2)
[2022-07-29 18:16] LABS: TOTAL T3 102.5 NG/DL (60.0-181.0)
== END ==
LOC: M SFHCCLAY 09:41
PROVIDERS: ATTEND Family Medicine
DX: R73.01 Impaired fasting glucose (principal); R79.89 Other specified abnormal findings of blood chemistry

== ENCOUNTER → 2023-05-29 | Outpatient (REF) | payer OTHER ==
[2023-05-29 13:03] LABS: ALBUMIN 3.9 G/DL (3.2-5.2); ALKALINE PHOSPHATASE 51 U/L (46-116); ALT/SGPT 17 U/L (7.0-40); AST/SGOT 15 U/L (<34); BILIRUBIN,TOTAL 0.5 MG/DL (0.3-1.2); BLOOD UREA NITROGEN 10 MG/DL (9-23); CALCIUM LEVEL 9.2 MG/DL (8.5-10.1); CARBON DIOXIDE LEVEL 32 MMOL/L (20-31); CHLORIDE LEVEL 103 MMOL/L (98-107); CHOLESTEROL LEVEL 169 MG/DL (<200); CREATININE FOR GFR 0.88 MG/DL (0.70-1.30); GLOMERULAR FILTRATION RATE > 60.0 (>60); GLUCOSE, FASTING 108 MG/DL (60-100); HDL CHOLESTEROL 67.6 MG/DL (>40); NON-HDL-C 101.4 MG/DL; POTASSIUM SERUM 4.3 MMOL/L (3.5-5.1); SODIUM LEVEL 138 MMOL/L (136-145); TOTAL PROTEIN 6.6 G/DL (5.7-8.2); TRIGLYCERIDES LEVEL 52 MG/DL (<150); URIC ACID 3.9 MG/DL (3.7-9.2)
[2023-05-29 13:05] LABS: THYROID STIMULATING HORMONE 3.834 uIU/ML (0.55-4.78)
[2023-05-29 13:06] LABS: FREE T4 0.95 NG/DL (0.89-1.76)
[2023-05-29 13:30] LABS: HEMOGLOBIN A1c 5.9 % (4.0-6.0)
== END ==
LOC: M SFHCCLAY 08:16
PROVIDERS: ATTEND Family Medicine
DX: M79.674 Pain in right toe(s) (principal); E78.2 Mixed hyperlipidemia; R79.89 Other specified abnormal findings of blood chemistry; R73.01 Impaired fasting glucose

== ENCOUNTER → 2024-05-27 | Outpatient (REF) | payer OTHER ==
[2024-05-27 11:24] LABS: HEMOGLOBIN 15.2 g/dl (13.5-17.5); MEAN CORPUSCULAR HEMOGLOBIN 29.9 pg (27.0-33.0); MEAN CORPUSCULAR HGB CONC 33.8 g/dl (32.0-36.5); MEAN CORPUSCULAR VOLUME 88.4 fl (80.0-96.0); PLATELET COUNT, AUTOMATED 241 10^3/uL (150-450); RED BLOOD COUNT 5.09 10^6/uL (4.30-6.10); WHITE BLOOD COUNT 5.4 10^3/uL (4.0-10.0)
[2024-05-27 11:32] LABS: HEMOGLOBIN A1c 5.5 % (4.0-6.0)
[2024-05-27 11:51] LABS: ALBUMIN 3.9 G/DL (3.2-5.2); ALKALINE PHOSPHATASE 50 U/L (46-116); ALT/SGPT 18 U/L (7.0-40); AST/SGOT 13 U/L (<34); BILIRUBIN,TOTAL 0.5 MG/DL (0.3-1.2); BLOOD UREA NITROGEN 13 MG/DL (9-23); CALCIUM LEVEL 9.6 MG/DL (8.5-10.1); CARBON DIOXIDE LEVEL 31 MMOL/L (20-31); CHLORIDE LEVEL 105 MMOL/L (98-107); CHOLESTEROL LEVEL 175 MG/DL (<200); CHOLESTEROL RISK RATIO 3.03 (<5); CREATININE FOR GFR 0.96 MG/DL (0.70-1.30); FREE T4 0.99 NG/DL (0.89-1.76); GLOMERULAR FILTRATION RATE > 60.0 (>56); GLUCOSE, FASTING 100 MG/DL (60-100); HDL CHOLESTEROL 57.7 MG/DL (>40); IRON (FE) 77 UG/DL (65-175); LDL CHOLESTEROL 104.3 MG/DL (<100); NON-HDL-C 117.3 MG/DL; POTASSIUM SERUM 4.8 MMOL/L (3.5-5.1); PSA SCREENING 0.62 NG/ML (< 4.00); SODIUM LEVEL 138 MMOL/L (136-145); THYROID STIMULATING HORMONE 1.272 uIU/ML (0.55-4.78); TOTAL PROTEIN 6.6 G/DL (5.7-8.2); TRIGLYCERIDES LEVEL 65 MG/DL (<150)
== END ==
LOC: M SFHCCLAY 07:22
PROVIDERS: ATTEND Family Medicine
DX: Z12.5 Encounter for screening for malignant neoplasm of prostate (principal); E78.2 Mixed hyperlipidemia; R79.89 Other specified abnormal findings of blood chemistry; R73.01 Impaired fasting glucose